=== PATIENT | female | born 1990 | race Caucasian/White ===

== ENCOUNTER → 2020-05-01 12:05 | Day surgery (SDC) | payer MEDICAID, SELFPAY ==
[2020-05-01 14:39] VITALS: BP 100/60; PULSE 92; RESP 18; TEMP 36.1; O2SAT 98
== END ==
PROVIDERS: Visit Provider Family Medicine
DX: O26.893 Other specified pregnancy related conditions, third trimester (principal); Z3A.00 Weeks of gestation of pregnancy not specified; Z67.91 Unspecified blood type, Rh negative; Z31.82 Encounter for Rh incompatibility status
CPT/HCPCS: 36415; 36430; 86850; 86900; 90384; 96372

== ENCOUNTER 2020-07-28 20:38 | Inpatient (IN) | payer MEDICAID, SELFPAY ==
[2020-07-28] VITALS (18 sets, daily range): BP systolic 102–121; BP diastolic 55–74; PULSE 62–108; RESP 17; TEMP 36.3; O2SAT 96–98; BMI 34.8
[2020-07-28 21:03] LABS: Basophils % 0.6 %; Eosinophils # 0.1 10^3/uL (0.0-0.8); Eosinophils % 0.8 %; Hematocrit 36.1 % (37.0-47.0); Hemoglobin 12.1 g/dL (11.5-15.3); Lymphocytes # 1.5 10^3/uL (0.8-4.8); Lymphocytes % 20.8 %; Mean Corpuscular HGB Conc 33.5 g/dL (30.0-36.0); Mean Corpuscular Hemoglobin 30.9 pg (28.0-34.0); Mean Corpuscular Volume 92.1 fL (81-99); Mean Platelet Volume 10.7 fL (7.4-10.4); Monocytes # 0.5 10^3/uL (0.2-0.9); Monocytes % 6.6 %; Neutrophils # 4.89 10^3/uL (1.8-7.7); Neutrophils % 69.1 %; Nucleated Red Blood Cells % 0 %; Platelet Count 150 10^3/cmm (130-400); Red Blood Count 3.92 10^6/uL (4.1-5.3); Red Cell Distribution Width 14.5 % (12.1-15.1); White Blood Count 7.1 10^3/uL (4.0-10.0)
[2020-07-28] MEDS: dextrose 5%-lactated ringers 1,000 ML 125 ML IV (21:11)
[2020-07-28] MEDS: ampicillin 2,000 MG in sodium chloride 0.9% (plus) 50 ML 100 MG IV (21:11)
[2020-07-28] MEDS: miSOPROStol 100 mcg tablet 25 MCG VAGINAL (21:30)
[2020-07-28] MEDS: lactated ringers 1,000 ML 999 ML IV (22:02)
[2020-07-29] VITALS (43 sets, daily range): BP systolic 91–155; BP diastolic 50–80; PULSE 57–99; RESP 16–17; TEMP 36.5–37; O2SAT 99
[2020-07-29] MEDS: ampicillin 1,000 MG in sodium chloride 0.9% (plus) 50 ML 100 MG IV ×3 (00:47→08:28)
[2020-07-29] MEDS: oxytocin 30 UNIT/500 ML BAG 600 UNIT IV (10:07)
--- NOTE | 2020-07-29 10:18 | PM.DELIVERY ---
Delivery Note: Date of delivery: July 29, 2020 Pre-delivery diagnoses: 1. 29-year-old 4 para 3-0-0-3 at 41 weeks estimated gestational age 2. Spontaneous vaginal delivery Post-delivery diagnoses: Same Procedure: Spontaneous vaginal delivery Op report anesthesia: None Delivering Physician: Ignacio Perales Estimated blood loss (mL): 300 Pre-Delivery Course: The patient presented to the hospital last night for induction due to being postdates. Her has been unremarkable. Her labs the following abnormalities. Her blood type was O-. She received a RhoGam shot on 01 May. 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 Her glucose screen was 99 she did not take Tdap due to having an allergy to it. The remainder of her labs are within normal limits. She was placed on Cytotec 25 mcg x 1. This morning an amniotomy was performed. She then progressed to complete without difficulty. She was GBS positive. She received multiple doses of ampicillin. Delivery: DELIVERY: The patient progressed to complete without difficulty. She delivered a male with a weight of 8 pounds 13 ounces with Apgars of 9, 9. The baby was delivered from the ROBY position. and placed on the mother's abdomen. The cord was then clamped and cut. There was a nuchal cord x1 that was easily reduced over the head at the perineum there was no meconium. Suctioning was not indicated due to the vigorous cry of the baby. The placenta and 3 vessel cord were delivered intact shortly thereafter. The perineum and vaginal vault were carefully examined. No lacerations were noted. Both the mother and the baby were in stable condition. Post-Delivery Status: Good A&P Assessment and plan (1) 41 weeks gestation of : Status: Acute (2) Spontaneous vaginal delivery: Status: Acute Coding Level of Care Code Acute Bosom Presser for Chg Fwd Diagnoses 41 weeks gestation of Z3A.41 Spontaneous vaginal delivery O80
--- NOTE | 2020-07-29 13:08 | PC.NURSE ---
pt up to bathroom, voided x1 without difficulty. shanel care/gown and pad changed. bed linens changed, mattress topper put on.
[2020-07-29] MEDS: docusate sodium 100 mg Capsule PO (18:05)
[2020-07-29] MEDS: ibuprofen 800 mg tablet PO (20:02)
[2020-07-30] VITALS (10 sets, daily range): BP systolic 99–132; BP diastolic 50–65; PULSE 66–82; RESP 16–17; TEMP 35.9–36.8
[2020-07-30 01:19] LABS: Hematocrit 35.2 % (37.0-47.0); Hemoglobin 11.7 g/dL (11.5-15.3); Mean Corpuscular HGB Conc 33.2 g/dL (30.0-36.0); Mean Corpuscular Hemoglobin 30.6 pg (28.0-34.0); Mean Corpuscular Volume 92.1 fL (81-99); Mean Platelet Volume 10.1 fL (7.4-10.4); Platelet Count 152 10^3/cmm (130-400); Red Blood Count 3.82 10^6/uL (4.1-5.3); Red Cell Distribution Width 14.2 % (12.1-15.1); White Blood Count 11.4 10^3/uL (4.0-10.0)
--- NOTE | 2020-07-30 08:20 | P.DS_ITS ---
Discharge Providers CASH APPLICATION CLERK Date of Admission: 07/28/20 20:38 Date of Discharge: 07/30/20 Attending Provider at Admission: Ignacio Perales MD Attending Provider at Discharge: Ignacio Perales MD Primary Care Provider: [facility] Diagnoses at Discharge Discharge Diagnosis (1) 41 weeks gestation of : Status: Acute (2) Spontaneous vaginal delivery: Status: Acute Reason for Visit Reason for Visit: induction Hospital Course Hospital Course The patient presented to the hospital at 41 weeks estimated gestational age for post dates induction. She was given Cytotec 25 mcg x 1. An amniotomy was performed. She progressed to complete without difficulty and had an unremarkable delivery of a healthy appearing term . She was GBS positive and received 4 doses of ampicillin prior to delivery of the . Her course was also unremarkable. Her bleeding was within normal limits. She breast-fed well. There were no concerns. Information Peripartum Data: Infant Delivery Method: Vaginal Physical Exam Narrative: EXAM NARRATIVE: The patient is alert. She appears comfortable. Her heart has a regular rate and rhythm with no murmurs appreciated. Lungs are clear to auscultation bilaterally. Her fundus is firm and below the umbilicus. Discharge Data Data Completed and Pending: Pending at discharge Category Date Time Status Antibody Identifi cation Routine Lab 07/28/20 20:10 Results Complete Crossmat ch Routine Lab 07/28/20 20:10 Results Maternal He morrhage Scrn Rout ine Lab 07/29/20 23:04 Received Rho D Immune Glob ulin Routine Lab 07/28/20 20:10 Results Type and Screen R outine Lab 07/28/20 20:10 Results Labs from last 24 hours 07/30/20 07/28/20 01:00 20:10 WBC 11.4 H RBC 3.82 L Hgb 11.7 Hct 35.2 L MCV 92.1 MCH 30.6 MCHC 33.2 RDW 14.2 Plt Count 152 MPV 10.1 Blood Type O Negative Rho(D) Type Negative / 0 Antibody Screen Positive Antibody Identific ation Anti-D Vitals: Last Vital Signs Temp 98.2 F 07/30/20 03:48 Pulse 82 07/30/20 07:44 Resp 17 07/29/20 18:07 BP 105/57 07/30/20 07:44 Pulse Ox 99 07/29/20 04:25 Discharge Plan Discharge Patient Disposition: Home Condition: Stable Prescriptions: New ibuprofen 800 mg Tablet 800 mg PO TID Qty: 30 RF: 0 Continued + DHA 28 mg iron- 975 mcg-200 mg Combo Pack 1 pkg PO DAILY RF: 0 Discharge Orders: Discharge Order (Routine); Ordered 07/30/20 Ordered By: Ignacio Perales Referrals: Austin Huff MD [Physician] - (For laparoscopic tubal ligation) Ignacio Perales MD [Physician] - 6 Weeks (Your 6 week appointment has been scheduled for 09/09/2020 at 2:[address] Perales.) Discharge Diet: Usual diet Discharge Activity: Limit activity as instructed Patient Instructions: Depression (GEN), Pre-eclampsia and Eclampsia (DC), Bleeding (DC), OB Discharge Report, OB Food/Drug Interaction Guide, OB Proud Parent Packet, OB Vaginal Deliveries, Abnormal Bleedi ng Discharge Attestations CASH APPLICATION CLERK Time Spent in Discharge Care*: less than 30 min Specific Discharge Activities: Specific discharge activities: educating patient Coding Level of Care Code Acute Electrical Prospecting Observer for Chg Fwd Diagnoses 41 weeks gestation of Z3A.41 Spontaneous vaginal delivery O80
--- NOTE | 2020-07-30 09:07 | PC.NURSE ---
note This baby sleeping at present. Mom reports baby has fed well but she has more difficulty on the right breast. She reports this has been a problem with both her other babies as well. She basically nurses the left side. She offers and tries to nurse the right but is uncomfortable/painful on that side. Offered to help her with the right side with the next feeding. Mom is planning to go home so she may just work on it herself.Provided contact information
[2020-07-30] MEDS: prenatal vitamin Capsule 1 CAP PO (09:11)
[2020-07-30] MEDS: ibuprofen 800 mg tablet PO (09:11)
[2020-07-30] MEDS: docusate sodium 100 mg Capsule PO (09:11)
== END 2020-07-30 13:05 | disposition home or self-care (01) | DRG 806 ==
PROVIDERS: Admitting Provider Family Medicine; Visit Provider Family Medicine
DX: O48.0 Post-term pregnancy (principal); O98.32 Other infections with a predominantly sexual mode of transmission complicating childbirth; Z37.0 Single live birth; Z3A.41 41 weeks gestation of pregnancy; O24.429 Gestational diabetes mellitus in childbirth, unspecified control; A63.0 Anogenital (venereal) warts; O99.824 Streptococcus B carrier state complicating childbirth; O69.2XX0 Labor and delivery complicated by other cord entanglement, with compression, not applicable or unspecified
CPT/HCPCS: 12345; 36415; 36430; 59025; 59409; 80500; 85025; 85027; 85460; 86850; 86870; 86900; 90384; 96372; 98960; J0290

== ENCOUNTER → 2020-09-03 13:20 | Outpatient (BNVA) | payer MEDICAID, SELFPAY | PROVIDERS: Visit Provider Obstetrics & Gynecology | DX: R87.612 Low grade squamous intraepithelial lesion on cytologic smear of cervix (LGSIL) (principal) | CPT/HCPCS: 88175 ==

== ENCOUNTER → 2021-11-26 11:57 | Outpatient (BNVA) | payer MEDICAID, SELFPAY | PROVIDERS: Visit Provider Nurse Practitioner Women's Health | DX: Z01.419 Encounter for gynecological examination (general) (routine) without abnormal findings (principal); R87.612 Low grade squamous intraepithelial lesion on cytologic smear of cervix (LGSIL); N92.0 Excessive and frequent menstruation with regular cycle | CPT/HCPCS: 87624 ==

== ENCOUNTER → 2023-01-28 11:05 | Outpatient (BNVA) | payer MEDICAID, SELFPAY | PROVIDERS: Visit Provider Nurse Practitioner Women's Health | DX: N92.0 Excessive and frequent menstruation with regular cycle (principal); Z01.419 Encounter for gynecological examination (general) (routine) without abnormal findings; R87.612 Low grade squamous intraepithelial lesion on cytologic smear of cervix (LGSIL) | CPT/HCPCS: 84443; 85025 ==

== ENCOUNTER → 2023-02-09 11:06 | Outpatient (BNVA) | payer MEDICAID, SELFPAY | PROVIDERS: Visit Provider Nurse Practitioner Women's Health | DX: N92.0 Excessive and frequent menstruation with regular cycle (principal) | CPT/HCPCS: 76830 ==

== ENCOUNTER 2023-05-11 12:10 | Outpatient (CLI) | payer MEDICAID, SELFPAY ==
[2023-05-14 13:28] LABS: Factor Viii, Activity 59 % normal (50-180); Partial Thromboplastin Time, A 32 sec (23-32)
[2023-05-14 13:53] LABS: Von Willebrand Factor (Rcf) 38 % normal (42-200); Von Willebrand Factor Ag 47 % (50-217)
== END 2023-05-11 12:11 | disposition home or self-care (01) ==
PROVIDERS: Visit Provider Nurse Practitioner Women's Health
DX: N92.0 Excessive and frequent menstruation with regular cycle (principal)
CPT/HCPCS: 36415; 85240; 85245; 85246

== ENCOUNTER → 2024-02-23 12:20 | Outpatient (BNVA) | payer MEDICAID, SELFPAY | PROVIDERS: Visit Provider Nurse Practitioner Women's Health | DX: Z01.419 Encounter for gynecological examination (general) (routine) without abnormal findings (principal) | CPT/HCPCS: 87624 ==

== ENCOUNTER 2024-06-28 09:34 | Outpatient (CLI) | payer MEDICAID, SELFPAY ==
--- NOTE | 2024-06-28 09:39 | XR_ITS ---
WS: [id number] KUB, AP view, 06/28/2024 Clinical Data: T83.32XA - Displacement of intrauterine contraceptive dev... Comparison: None. Findings: No abnormal intraabdominal masses or calcifications are seen. There is no dilatated small bowel or evidence of obstruction. There is moderate fecal material throughout the colon. The bones of the lower thorax, lumbar spine and pelvis are unremarkable. No radiopaque IUD is seen in the abdomen. XR/XR abdomen 1V* [id number] Impression: Negative KUB.
--- NOTE | 2024-06-28 09:39 | XR_ITS ---
WS: [id number] Pelvis, AP view, 06/28/2024 Clinical Data: T83.32XA - Displacement of intrauterine contraceptive dev... Comparison: None. Findings: No fractures or dislocations are seen. The SI joints and pubic symphysis are intact. The soft tissues are not remarkable. No displaced IUD is seen. XR/XR pelvis 1-2V* [id number] Impression: Negative pelvis.
== END 2024-06-28 09:35 | disposition home or self-care (01) ==
PROVIDERS: Visit Provider Nurse Practitioner Women's Health
DX: T83.32XA Displacement of intrauterine contraceptive device, initial encounter (principal); K59.00 Constipation, unspecified; X58.XXXA Exposure to other specified factors, initial encounter
CPT/HCPCS: 72170; 74018